=== PATIENT | female | born 1965 | race Caucasian/White ===

== ENCOUNTER 2023-07-11 17:48 | Emergency (ER) | payer BC, SELFPAY ==
[2023-07-11 17:51] VITALS: BP 139/98
--- NOTE | 2023-07-11 18:32 | ED.GENMED ---
History of Present Illness
General
Chief Complaint: Medication Reaction
Source: patient
Exam Limitations: none
Time Seen by Provider: 07/11/23 18:13
Travel History
Have you had any contact with someone who has COVID-19?: No
Do you have any symptoms of coronavirus? Fever > 100 degrees, chills, cough, shortness of breath, sore throat, loss of taste or smell, muscle aches, or headache?: No
History of Present Illness
History of Present Illness:
This is a 58 year old female that comes in with c/o vomiting. States that she took her first shot of Semaglutide yesterday at 4pm. Then by 6pm she started vomiting and was vomiting all ni9ght. Stated she has continued to vomit very 2 hours. States
that it just hasn't stopped and she is feeling Dehydrated. States that she also has a headache and hasn't eaten anything. Denies any fever, chills, chest pain, SOB, abd pain, diarrhea, dizziness, urinary burning.
Past History
Past History
ED Past Medical History: Asthma, HTN, Hypercholesterolemia, Psychiatric (Depression) and Other (ADHD)
ED Past Surgical History: Appendectomy and Orthopedic (Right hip replacement)
Social History
Tobacco: Non-smoker
Alcohol: None
Personal:
Living: with family
Review of Systems
Review of Systems
All Other Systems: ROS reviewed and negative except as documented in HPI and ROS
Constitutional: Reports no symptoms; Denies fever or chills
EENT: Reports no symptoms
Respiratory: Reports no symptoms; Denies cough or trouble breathing
Cardiac: Reports no symptoms; Denies chest pain
ABD/GI: Reports nausea and vomiting; Denies abdominal pain or diarrhea
: Reports no symptoms; Denies dysuria, frequency or urgency
Musculoskeletal: Reports no symptoms
Skin: Reports no symptoms
Neurological: Reports headache; Denies dizzy
Psychiatric: Reports no symptoms
Phy Exam
General Physical Exam
General Presentation: no apparent distress
General age: appears stated age
General Skin: warm and dry
General Habitus: normal
General Mental: alert
General Hydration: dry mucous membranes
ENT Exam
ENT Exam: TM's normal, pharynx normal and neck supple
Eye Exam
Eye Exam: EOMI
Cardiovascular Exam
Cardiovascular Exam: regular rate/rhythm, no edema, no murmur and normal peripheral pulses
Pulmonary Exam
Pulmonary Exam: lungs clear, no respiratory distress, no rales, chest non tender, no crackles, no rhonchi, no wheezing and no cough
Gastrointestinal Exam
Gastrointestinal Exam: non tender, soft, no organomegaly, no pulsatile mass, non distended and other (Hypoactive bowel sounds)
Musculoskeletal Exam
Musculoskeletal Exam: full ROM and no edema
Skin Exam
Skin Exam: normal color, warm/dry, no rash and no petechia
Psychiatric Exam
Psychiatric Exam: normal mood/affect
Course
Orders/Labs/Results
Orders:
Orders
07/11/23 18:31
0.9% Sodium Chloride 1000 ml [Nss] 1,000 ml IV BOLUS
Ondansetron Injectable [Zofran] 4 mg IV NOW STA
07/11/23 18:57
Complete Blood Count/With Diff Urgent
Comprehensive Metabolic Panel Urgent
Lipase Urgent
Abnormal Lab Results
07/11/23
18:57
Absolute Neuts (auto) 6.8 H 10^3/uL
(1.4-6.5)
Sodium 134 L mmol/L
(135-145)
Creatinine 0.5 L mg/dL
(0.6-1.0)
07/11/23 18:57
07/11/23 18:57
Labs unremarkable. Lipase normal at 75
Vital Signs
Initial and Last Documented VS:
Initial Vital Signs
Temp Pulse Resp BP Pulse Ox
98.6 F 89 16 139/98 96
07/11/23 17:51 07/11/23 17:51 07/11/23 17:51 07/11/23 17:51 07/11/23 17:51
Last Documented Vital Signs
Temp Pulse Resp BP Pulse Ox
98.6 F 68 16 129/78 99
07/11/23 17:51 07/11/23 20:00 07/11/23 20:00 07/11/23 20:00 07/11/23 20:00
MDM/Problems Addressed
Differential Diagnosis Includes:
Reaction to Medication (semaglutide).
MDM/Problems Addressed:
This is a 58 year old female that had her first injection yesterday of Semaglutide. States that she took this as 4pm and by 6pm she was vomiting and vomited all night every 2 hours. States that she is unable to keep anything down.
Will check labs. Give IV fluids and Zofran.
back into see patient. patient is feeling better. Will discharge home with prescription for Zofran. Encouraged patient to hold off on taking her Semaglutide injection. Follow up with the family doctor. Return with any concerns.
Chronic conditions affecting care:
NA
Acute Exacerbation and/or Progression of Chronic Illness:
NA
*Pulse Oximetry
Patient hypoxic: no
*EKG
Interpreted by ED Provider?: NA
Rate: EKG- N/A
*Enterprise Security Architect Interpretation
Rate: Enterprise Security Architect- N/A
*Critical Care Note
Total Time (30-74mins, 75-104mins- exclusive of procedures): Not Applicable
ED Attending Note
-
Portions of this chart may have been created with voice recognition software.� Occasional wrong word or��sound alike� substitutions may have occurred due to the inherent limitations of voice recognition software.
Discharge Plan
Departure
Patient Disposition: Home (Routine Discharge)
Date of Disposition: 07/11/23
Time of Disposition: 21:26
Patient with high blood pressure during this ER visit?: Yes
Condition: Good
Covid-19: Not Applicable
Discharge Problem:
Nausea & vomiting
Instructions: Nausea and Vomiting, Adult (DC), BLOOD PRESSURE
Prescriptions:
New
ondansetron 4 mg tablet,disintegrating
4 mg PO Q8H PRN (Reason: nausea and vomiting) Qty: 7 0RF
Referrals:
Anay Luna PA-C [Family Provider] - Call in 1-3 days for appt
Activity Restrictions/Additional Instructions:
As discussed, your blood work is normal. Please hold off on using the Semaglutide. You have a prescription for Zofran sent to your Pharmacy. Please follow up with the family doctor for recheck. IF YOU HAVE ANY OTHER CONCERNS PLEASE RETURN TO THE
EMERGENCY ROOM.
Interventions
Interventions:
*Risk Screen - Suicide Last Done: 07/11/23 18:18
*General Assessment Last Done: 07/11/23 18:18
*Neglect/Abuse Screening Last Done: 07/11/23 18:18
ED- Fall Risk Assessment Last Done: 07/11/23 18:18
ED-Skin Assessment Last Done: 07/11/23 18:18
ED- Pulmonary Assessment Last Done: 07/11/23 18:18
ED-EENT Assessment Last Done: 07/11/23 18:18
Discharge Date and Time
Print Language: DIVEHI
[2023-07-11] MEDS: NSS 1000 IV (19:11)
[2023-07-11] MEDS: ZOFRAN 4 MG IV (19:11)
[2023-07-11 19:26] LABS: % Basophils 0.6 % (0-2); % Eosinophils 0.1 % (0-6); % Immature Granulocytes 0.4 % (0-0.5); % Monocytes 5.7 % (1.7-9.3); % Neutrophils 70.2 % (42.2-75.2); Absolute Basophils 0.1 10^3/uL (0-0.2); Absolute Lymphocytes 2.2 10^3/uL (1.2-3.4); Absolute Monocytes 0.6 10^3/uL (0.1-0.6); Absolute Neutrophils 6.8 10^3/uL (1.4-6.5); Hematocrit 43.6 % (37.0-47.0); Hemoglobin 14.4 g/dL (12.0-16.0); Mean Corpuscular Hgb 28.2 pg (27.0-31.0); Mean Corpuscular Volume 85.5 fL (81.0-99.0); Mean Platelet Volume 9.8 fL (7.4-10.4); Nucleated Red Blood Cells % 0 %; Platelet Count 208 10^3/uL (130-400); Red Cell Dist. Width 13.3 % (11.5-14.5); White Blood Cell Count 9.6 10^3/uL (4.8-10.8)
[2023-07-11 19:37] LABS: ALT (SGPT) 25 U/L (0-35); AST (SGOT) 28 U/L (14-36); Albumin 4.8 g/dl (3.5-5.0); Alkaline Phosphatase 56 U/L (38-126); Blood Urea Nitrogen 13 mg/dl (7-17); Calcium 9.6 mg/dl (8.4-10.2); Carbon Dioxide 26 mmol/L (22-30); Chloride 103 mmol/L (98-107); Glucose 86 mg/dl (70-99); Lipase 75 U/L (23-300); Potassium 3.6 mmol/L (3.5-5.1); Sodium 134 mmol/L (135-145); Total Bilirubin 0.9 mg/dl (0.2-1.3); Total Protein 7.6 g/dl (6.3-8.2); eGFR > 60.00
[2023-07-11 20:00] VITALS: BP 129/78
== END 2023-07-11 21:37 | disposition home or self-care (01) ==
LOC: EMR 17:48
PROVIDERS: Clinical Nurse Specialist Family Health; EMERGENCY PHYSICIAN Emergency Medicine; FAMILY PHYSICIAN Physician Assistant
DX: R11.2 Nausea with vomiting, unspecified (principal); R51.9 Headache, unspecified; J45.909 Unspecified asthma, uncomplicated; I10 Essential (primary) hypertension; E78.00 Pure hypercholesterolemia, unspecified; F32.A Depression, unspecified; F90.9 Attention-deficit hyperactivity disorder, unspecified type; Z90.49 Acquired absence of other specified parts of digestive tract
CPT/HCPCS: 99283; 96374; 96361; 80053; 83690; 85025

== ENCOUNTER 2023-12-07 15:26 | Emergency (ER) | payer BC, SELFPAY ==
[2023-12-07 15:35] VITALS: BP 169/100
--- NOTE | 2023-12-07 17:17 | ED.GENMED ---
History of Present Illness
General
Chief Complaint: Rabies
Time Seen by Provider: 12/07/23 16:35
History of Present Illness
History of Present Illness:
58-year-old female presents the emergency department with concern for possible rabies exposure. She states that while driving she saw a baby raccoon in the road, she was concerned that it may run over by car since she picked it up with a towel and
brought into her vehicle. She then drove with the animal in her vehicle for approximately 1 hour, states that the animal appeared to be somewhat anxious or agitated however she fell at [employer] and while feeding the animal and began to lift her.
While was looking she notes that she ate part of her [employer] cheeseburger without washing her hands. Although she was not bitten and the animal did not act rapid she is concerned for possible rabies
Past History
Past History
ED Past Medical History: Asthma, HTN, Hypercholesterolemia, Psychiatric (Depression) and Other (ADHD)
ED Past Surgical History: Appendectomy and Orthopedic (Right hip replacement)
Social History
Tobacco: Non-smoker
Alcohol: None
Personal:
Living: with family
Review of Systems
Review of Systems
Allergies reviewed?: Yes
All Other Systems: ROS reviewed and negative except as documented in HPI and ROS
Phy Exam
Physical Exam
Physical Exam:
GEN: Well appearing, NAD, WDWN
HEENT: Oral mucosa moist, no scleral icterus
Cardiac: Regular rate
Lung: No respiratory distress, no tachypnea
MSK: No gross deformity or injuries
Skin: Good color, no pallor or jaundice, no rashes
Neuro: AO x3, moves all extremities freely
Psych: Calm, cooperative
Course
Vital Signs
Initial and Last Documented VS:
Initial Vital Signs
Temp Pulse Resp BP Pulse Ox
98.3 F 79 20 169/100 98
12/07/23 15:35 12/07/23 15:35 12/07/23 15:35 12/07/23 15:35 12/07/23 15:35
Last Documented Vital Signs
Temp Pulse Resp BP Pulse Ox
98.3 F 79 20 169/100 98
12/07/23 15:35 12/07/23 15:35 12/07/23 15:35 12/07/23 15:35 12/07/23 15:35
MDM/Problems Addressed
MDM/Problems Addressed:
Highly unlikely that this animal was rabid and given that there was no bite I see no indication for rabies postexposure prophylaxis
*Critical Care Note
Total Time (30-74mins, 75-104mins- exclusive of procedures): Not Applicable
ED Attending Note
-
Portions of this chart may have been created with voice recognition software.� Occasional wrong word or��sound alike� substitutions may have occurred due to the inherent limitations of voice recognition software.
Discharge Plan
Departure
Patient Disposition: Home (Routine Discharge)
Date of Disposition: 12/07/23
Time of Disposition: 17:17
Patient with high blood pressure during this ER visit?: No
Discharge Problem:
Other contact with [facility], initial encounter
Prescriptions:
No Action
ondansetron 4 mg tablet,disintegrating
4 mg PO Q8H PRN (Reason: nausea and vomiting) Qty: 7 0RF
Referrals:
Anay Luna PA-C [Family Provider] -
Activity Restrictions/Additional Instructions:
As you were not bitten, and the animal was acting normal for an extended duration, there is no indication for rabies vaccinations
Interventions
Interventions:
*Risk Screen - Suicide Last Done: 12/07/23 15:35
*General Assessment Last Done: 12/07/23 15:35
*Neglect/Abuse Screening Last Done: 12/07/23 15:35
*Nursing Disposition Last Done: 12/07/23 17:23
Discharge Date and Time
Discharge Date/Time: 12/07/23 17:23
Print Language: LATVIAN
== END 2023-12-07 17:23 | disposition home or self-care (01) ==
LOC: EMR 15:26
PROVIDERS: EMERGENCY PHYSICIAN Emergency Medicine; FAMILY PHYSICIAN Physician Assistant
DX: Z20.3 Contact with and (suspected) exposure to rabies (principal); W55.59XA Other contact with raccoon, initial encounter
CPT/HCPCS: 99281

== ENCOUNTER → 2024-09-18 09:10 | Outpatient (REF) | payer BC, SELFPAY | LOC: HWWDC 09:10 | PROVIDERS: ATTENDING PHYSICIAN Nurse Practitioner; FAMILY PHYSICIAN Physician Assistant | DX: Z12.31 Encounter for screening mammogram for malignant neoplasm of breast (principal) | CPT/HCPCS: 77063; 77067 ==